=== PATIENT | female | born 1955 | race Caucasian/White ===

== ENCOUNTER 2016-12-22 13:38 | Day surgery (SDC) | payer OTHER ==
[2016-12-18 15:00] LABS: BASOPHILS 0.3 %; BASOPHILS ABSOLUTE 0.02 10/3/uL (0.0-0.16); EOSINOPHILS 3.1 %; EOSINOPHILS ABSOLUTE 0.23 10/3/uL (0.0-0.53); HEMOGLOBIN 11.8 g/dL (12.0-16.0); IMMATURE GRANULOCYTES 0.4 %; IMMATURE GRANULOCYTES ABSOLUTE 0.03 10/3/uL (0.0-0.11); LYMPHOCYTES 31.3 %; LYMPHOCYTES ABSOLUTE 2.33 10/3/uL (0.67-4.30); MEAN CORPUS HGB CONC 33.5 g/dL (32.0-36.0); MEAN CORPUSCULAR HEMOGLOB 32.4 pg (26.0-34.0); MEAN CORPUSCULAR VOLUME 96.7 fL (80-100); MEAN PLATELET VOLUME 11.4 fL (9.2-13.0); MONOCYTES 7.1 %; MONOCYTES ABSOLUTE 0.53 10/3/uL (0.21-1.20); NEUTROPHILS 57.8 %; PLATELET COUNT 109 10/3/uL (150-400); RBC DISTRIBUTION WIDTH 13.4 % (12.0-16.0); RED CELL COUNT 3.64 10/6/uL (4.0-5.6); WHITE BLOOD CELLS 7.4 10/3/uL (4.5-10.5)
[2016-12-18 15:04] LABS: HEMATOCRIT 35.2 % (36.0-48.0); MANUAL DIFF NO %
[2016-12-18 15:08] LABS: ASCORBIC ACID (UR NOT ORDER) NEG (NEG); BILIRUBIN, URINE NEGATIVE (NEG); KETONE, URINE NEGATIVE (NEG); LEUKOCYTE ESTERASE(NOT OR NEG (NEG); WBC (NOT ORDERED) (RFLEX) 1 (0-5)
[2016-12-18 15:15] LABS: CHLORIDE, SERUM 103 MMOL/L (96-112); CO2 (CARBON DIOXIDE) 30 MMOL/L (24-34); CREATININE 0.96 MG/DL (0.55-1.02); GFR AFRICAN AMERICAN 73 ML/MIN (>=60); GFR NON AFRICAN AMERICAN 63 ML/MIN (>=60); POTASSIUM, SERUM 4.1 MMOL/L (3.5-5.3); SODIUM, SERUM 139 MMOL/L (135-148)
[2016-12-18 15:16] LABS: BUN (BLOOD UREA NITROGEN) 9 MG/DL (6-23); GLUCOSE, SERUM 116 MG/DL (60-99)
--- NOTE | ~2016-12-22 | OP ---
Record Of Operation [facility] [address] [place]. [address] NAME: KALEIGH DIMAS : 51 STATUS : [facility]#: [id number] AGE: 61 ADM/REG DATE : 12/22/16 MR#: [id number] REPORT SERV DATE: 12/22/16 DICTATED BY: KARSON PERAZA JR. DATE: 12/22/16 REPORT STATUS : Draft TRANSCRIBED BY: SHREYA DATE: 12/22/16 DATE OF PROCEDURE: 12/22/2016 SURGEON: Karson Peraza M.D. PREOPERATIVE DIAGNOSIS: Urethral stenosis and hematuria. POSTOPERATIVE DIAGNOSIS: Urethral stenosis and hematuria. PROCEDURE PERFORMED: Cystoscopy, urethral dilation. COMPLICATIONS: None. CONSULTATIONS: None. ANESTHESIA: General with laryngeal mask airway. SPECIMENS: None. DRAINS: None. ESTIMATED BLOOD LOSS: None. INDICATION: Ms Dimas is a 61-year-old female, who I saw in the office with microscopic hematuria that was persistent and asymptomatic. Upper tract imaging was normal; however, I was unable to perform cystoscopy in the office secondary to urethral stenosis, the patient anxiety and pain. She comes today for urethral dilation with cystoscopy under anesthesia. PROCEDURE IN DETAIL: After the patient was identified and proper informed consent was obtained, she was taken to the operating room. General anesthesia was performed without complication using a laryngeal mask airway. She was then prepped and draped in normal sterile fashion in the lithotomy position. Cystoscopic examination of the urethra again was unsuccessful due to urethral stenosis. I then dilated the urethra using female fenestrated sounds to 26-[place] without traumatizing the urethra. I then performed cystoscopy with a 20 [place] cystoscope. There were some varicosities around the bladder neck at the 6 o'clock position. There were likely the source of her hematuria. The bladder mucosa was found to be normal. Both ureteral orifices were in the normal position, normal size with clear efflux coming from both ureteral orifices. There were no tumors, diverticula, or stones noted. The bladder was drained. The patient was awakened in the operating room, transferred to the postanesthesia care in stable condition. I will see her back in three months for recheck of the urine. TOMY/SHREYA Record Of [facility] [address] [place]. [address] NAME: KALEIGH DIMAS : 51 STATUS : [facility]#: [id number] AGE: 61 ADM/REG DATE : 12/22/16 MR#: [id number] REPORT SERV DATE: 12/22/16 DICTATED BY: KARSON PERAZA JR. DATE: 12/22/16 REPORT STATUS : Draft TRANSCRIBED BY: MODL DATE: 12/22/16 Karson Peraza Jr., M.D. / [id number] CC: Karson Peraza Jr., M.D.
[~2016-12-22 13:38] MED LIST: BENTYL20 PO; COMBIVENT RESPIM4 GM INH; FORTAMET500 MG PO; GLUCOTRO10 PO; LANTUSCART SC; LANTUSCART SQ; OXYCOD PO; PR25 PO; PRAVACHOL40 MG PO; PRIN10 PO; PROTONIX PO; ZANAFLEX2 MG PO; ZANTAC 150 PO
== END 2016-12-22 21:27 | disposition home or self-care (01) ==
LOC: SDC 13:38
PROVIDERS: Urology
PROC: 0T7D8ZZ Dilation of Urethra, Via Natural or Artificial Opening Endoscopic (ICD-10-PCS; principal; 2016-12-22 15:00)
DX: N35.9 Urethral stricture, unspecified (principal); R31.9 Hematuria, unspecified; E66.01 Morbid (severe) obesity due to excess calories; I10 Essential (primary) hypertension; J44.9 Chronic obstructive pulmonary disease, unspecified; K21.9 Gastro-esophageal reflux disease without esophagitis; G47.33 Obstructive sleep apnea (adult) (pediatric); E11.9 Type 2 diabetes mellitus without complications; D68.0 Von Willebrand disease; D69.3 Immune thrombocytopenic purpura; M81.0 Age-related osteoporosis without current pathological fracture; K58.9 Irritable bowel syndrome, unspecified; E78.00 Pure hypercholesterolemia, unspecified; Z90.49 Acquired absence of other specified parts of digestive tract; Z90.710 Acquired absence of both cervix and uterus; Z98.890 Other specified postprocedural states; Z90.89 Acquired absence of other organs; G62.9 Polyneuropathy, unspecified; Z87.891 Personal history of nicotine dependence; Z88.0 Allergy status to penicillin; Z88.5 Allergy status to narcotic agent; Z88.2 Allergy status to sulfonamides; Z88.1 Allergy status to other antibiotic agents; Z88.6 Allergy status to analgesic agent; Z79.899 Other long term (current) drug therapy; Z79.4 Long term (current) use of insulin; Z79.891 Long term (current) use of opiate analgesic
CPT/HCPCS: 80048; 81001; 82962; 85025; 93005; A9270-GY; J2250; J2270; J2405; J3010